=== PATIENT | male | born 1960 | race Caucasian/White ===

== ENCOUNTER → 2017-03-06 | Outpatient (CLI) | payer OTHER ==
[~2017-03-06] MED LIST: ALEVE 220MG220 MG PO; ASPIRIN 81M81 MG/TA2 PO; CIALIS5 MG PO; EPA/GLA1 SGL PO; FLEXERIL10 MG PO; HYDROCORTISONE PO; NORCO 325 MG-51 TAB PO; PERCOCET 325 MG1 TA2 PO; SOMA 350MG350 MG/TAB PO; ULTRAM 50MG TAB50 MG PO; XANAX 0.5MG0.5 MG PO; [UNRECOGNIZED DRUG - OTHER]; [UNRECOGNIZED DRUG - OTHER] PO
== END ==
LOC: COL.RAD 08:15
DX: Z47.89 Encounter for other orthopedic aftercare (principal); M51.26 Other intervertebral disc displacement, lumbar region; M51.37 Other intervertebral disc degeneration, lumbosacral region; M48.07 Spinal stenosis, lumbosacral region
CPT/HCPCS: A9585